=== PATIENT | female | born 1950 | race Caucasian/White ===

== ENCOUNTER 2017-04-16 07:11 | Emergency (ER) | payer MEDICARE, OTHER ==
[2017-04-16 07:21] VITALS: TEMP 97.5; O2SAT 98
--- NOTE | 2017-04-16 08:01 | C.PDOC ---
History Of Present Illness 66 y/o female presents to the ED with complaints of left knee pain since yesterday after she tripped on a curb and fell onto her knee. Denies head or any other injury. Pain worse with ambulation. No change in sensation. Time Seen by Provider: 04/16/17 07:38 Chief Complaint (Nursing): Lower Extremity Problem/Injury History Per: Patient History/Exam Limitations: no limitations Onset/Duration Of Symptoms: Hrs Current Symptoms Are (Timing): Still Present Severity: Moderate Recent travel outside of the [place]: No - Knee Description Of Injury: Fell Past Medical History Reviewed: Historical Data, Nursing Documentation, Vital Signs Vital Signs: Last Vital Signs Temp 97.5 F L 04/16/17 07:20 Pulse 71 04/16/17 07:20 Resp 16 04/16/17 07:20 BP 118/80 04/16/17 07:20 Pulse Ox 98 04/16/17 08:10 - Medical History PMH: Asthma, Back Problems, Diabetes, Diverticulitis, HTN, Hypercholesterolemia , Kidney Stones Surgical History: Coronary Stent Family History: States: Unknown Family Hx - Social History Hx Tobacco Use: No Hx Alcohol Use: No Hx Substance Use: No - Immunization History Hx Tetanus Toxoid Vaccination: No Hx Influenza Vaccination: No Hx Pneumococcal Vaccination: No Review Of Systems Musculoskeletal: Positive for: Other (left knee pain) Neurological: Negative for: Weakness, Numbness Physical Exam - Physical Exam Appears: Non-toxic, No Acute Distress Skin: Warm, Dry, No Rash Head: Atraumatic, Normacephalic Eye(s): bilateral: Normal Inspection, EOMI Nose: Normal Oral Mucosa: Moist Neck: Normal, Normal ROM, Supple Chest: Symmetrical Respiratory: No Accessory Muscle Use Extremity: Normal ROM, No Calf Tenderness, No Deformity, Other (ecchymosis and tenderness to left anterior knee) Extremity: Bilateral: Normal ROM Pulses: Left Dorsalis Pedis: Normal, Right Dorsalis Pedis: Normal Neurological/Psych: Oriented x3, Normal Speech, Normal Cognition, Normal Motor, Normal Sensation Gait: With Assistance (with cane (prior to fall)) ED Course And Treatment O2 Sat by Pulse Oximetry: 98 (room air) Pulse Ox Interpretation: Normal - Other Rad Knee XR X-Ray: Interpreted by Me, Viewed By Me Interpretation: No fracture or dislocation Progress Note: Knee brace applied by thin film technician. Pt walked with cane at baseline. Instructed to follow up with PMD in 1-2 days. Disposition - Disposition Referrals: Joey Loera III, MD [Staff Provider] - Disposition: HOME/ ROUTINE Disposition Time: 08:00 Condition: STABLE Additional Instructions: Rest, ice and elevate the area. Follow up with PMd in 1-2 days. Instructions: Knee Sprain (ED) - Clinical Impression Clinical Impression: Knee contusion - PA / JAVA TECH LEAD / Resident Statement MD/DO has reviewed & agrees with the documentation as recorded. - Scribe Statement The provider has reviewed the documentation as recorded by the Scribe Boom Tran All medical record entries made by the Brad were at my direction and personally dictated by me. I have reviewed the chart and agree that the record accurately reflects my personal performance of the history, physical exam, medical decision making, and the department course for this patient. I have also personally directed, reviewed, and agree with the discharge instructions and disposition.
[2017-04-16 08:33] VITALS: BP 120/78; PULSE 75; RESP 18
--- NOTE | 2017-04-16 12:24 | RAD ---
PROCEDURE: Left knee dated 04/16/2017 HISTORY: Pain. COMPARISON: None. FINDINGS: BONES: No evidence of acute displaced fracture nor dislocation. The osseous structures intact. JOINTS: There is mild moderate to fairly significant medial joint space narrowing with subchondral sclerosis small osteophyte arises the tibial plateau. There is spurring of the tibial spines. Tiny posterior patellar osteophyte formation. JOINT EFFUSION: Small suprapatellar joint effusion OTHER FINDINGS: None. IMPRESSION: No evidence of acute displaced fracture nor dislocation. . Degenerative osteoarthritis with small suprapatellar joint effusion
== END 2017-04-16 08:35 | disposition home or self-care (01) ==
LOC: C.ER 07:11
DX: S80.00XA Contusion of unspecified knee, initial encounter (principal); W01.0XXA Fall on same level from slipping, tripping and stumbling without subsequent striking against object, initial encounter; Y92.480 Sidewalk as the place of occurrence of the external cause

== ENCOUNTER 2019-02-18 15:32 | Inpatient (IN) | payer MEDICARE, OTHER | END 2019-02-21 15:06 | disposition home or self-care (01) | LOC: C.ER 15:32 → C.6T 02-19 19:02 → C.9E 19:40 → C.6T 20:21 ==